=== PATIENT | female | born 1955 | race Caucasian/White ===

== ENCOUNTER 2025-06-14 05:21 | Observation (INO) ==
--- NOTE | 2025-05-26 14:29 | PAT Medication Instructions ---
Medication Instructions Date of Service May 26, 2025 Home Medications amlodipine 5 mg tablet 5 mg PO QAM cranberry extract 200 mg capsule 200 mg PO DAILY duloxetine 60 mg capsule,delayed release (Cymbalta) 60 mg PO QAM hydrochlorothiazide 25 mg tablet 25 mg PO QAM levothyroxine 100 mcg capsule 50 mcg PO UD rosuvastatin 10 mg tablet (Crestor) 10 mg PO HS calcium 600 mg (as carbonate)-vit D3 20 mcg (800 unit) chewable tablet (Caltrate plus D) 1 tab PO BID mecobalamin (vitamin B12) 2,500 mcg chewable tablet 2,500 mcg PO DAILY cholecalciferol (vitamin D3) 125 mcg (5,000 unit) capsule 125 mcg PO DAILY multivitamin (Daily Multi-Vitamin tablet) 1 tab PO DAILY aspirin 81 mg tablet 81 mg PO DAILY Continue as directed levothyroxine 100 mcg capsule 50 mcg PO UD ASK your prescriber and surgeon aspirin 81 mg tablet 81 mg PO DAILY DO NOT take the morning of surgery cranberry extract 200 mg capsule 200 mg PO DAILY hydrochlorothiazide 25 mg tablet 25 mg PO QAM calcium 600 mg (as carbonate)-vit D3 20 mcg (800 unit) chewable tablet (Caltrate plus D) 1 tab PO BID mecobalamin (vitamin B12) 2,500 mcg chewable tablet 2,500 mcg PO DAILY cholecalciferol (vitamin D3) 125 mcg (5,000 unit) capsule 125 mcg PO DAILY multivitamin (Daily Multi-Vitamin tablet) 1 tab PO DAILY Take morning of surgery With a small sip of water, OTHERWISE NOTHING TO EAT OR DRINK AFTER MIDNIGHT: amlodipine 5 mg tablet 5 mg PO QAM duloxetine 60 mg capsule,delayed release (Cymbalta) 60 mg PO QAM Take evening before surgery rosuvastatin 10 mg tablet (Crestor) 10 mg PO HS calcium 600 mg (as carbonate)-vit D3 20 mcg (800 unit) chewable tablet (Caltrate plus D) 1 tab PO BID Other Notes If you have any questions please call us at [phone] or [phone] or [phone] or [phone]
--- NOTE | 2025-06-02 13:55 | Anesthesiology Consultation ---
Date of Service June 02, 2025 Assessment & Plan (1) Encounter for pre-operative examination: - Outpatient joint assessment: Patient is currently scheduled for inpatient pathway. If re-evaluated and patient/surgeon requests outpatient pathway, patient is not ideal for outpatient joint program. Chart Review Chart Review: Acceptable Risk for Surgery and Patient seen in Pre Admission Testing Teaching & Discussion Pre-Anesthesia Teaching/Discussion Notes: Instructed NPO after midnight before surgery, except medications with 15 cc of water. Medication instructions provided according to the PAT guidelines. History Surgery Operation Date: 06/14/25 07:00 Proposed Procedures p Left Total Knee Arthroplasty - Marques Burnett MD Height/Weight Height: 5 ft 1.5 in Weight: 52.8 kg Allergies Allergy/AdvReac Type Severity Reaction Status Date / Time bactrim AdvReac yeast Uncoded 05/25/25 13:34 infection Medications Home Medications Medication Instructions Recorded Confirmed Last Taken amlodipine 5 mg tablet 5 mg PO QAM 07/29/24 05/25/25 Unknown cranberry extract 200 mg capsule 200 mg PO DAILY 07/29/24 05/25/25 Unknown duloxetine 60 mg capsule,delayed 60 mg PO QAM 07/29/24 05/25/25 Unknown release (Cymbalta) hydrochlorothiazide 25 mg tablet 25 mg PO QAM 07/29/24 05/25/25 Unknown levothyroxine 100 mcg capsule 50 mcg PO UD 07/29/24 05/25/25 Unknown rosuvastatin 10 mg tablet (Crestor) 10 mg PO HS 07/29/24 05/25/25 Unknown calcium 600 mg (as carbonate)-vit 1 tab PO BID 11/26/24 05/25/25 Unknown D3 20 mcg (800 unit) chewable tablet (Caltrate plus D) mecobalamin (vitamin B12) 2,500 2,500 mcg PO DAILY 11/26/24 05/25/25 Unknown mcg chewable tablet cholecalciferol (vitamin D3) 125 125 mcg PO DAILY 01/17/25 05/25/25 Unknown mcg (5,000 unit) capsule multivitamin (Daily Multi-Vitamin 1 tab PO DAILY 01/17/25 05/25/25 Unknown tablet) aspirin 81 mg tablet 81 mg PO DAILY 05/25/25 05/25/25 Unknown Past Medical History Medical History (Updated 06/03/25 @ 08:36 by Heather Pink PA-C) Cerebrovascular disease follows with [facility] Chickenpox as a child Degenerative arthritis of knee, bilateral Depression Fibromyalgia LISA (generalized anxiety disorder) GERD (gastroesophageal reflux disease) resolved History of COVID-19 (2020) denies hospitalization-resolved HTN (hypertension) variable Hyperlipidemia Hypothyroidism Mild cognitive disorder Mumps as a child Neoplasm of unspecified behavior of bone, soft tissue, and skin pt unaware/denies Osteoporosis Thoracic and lumbosacral neuritis Patient denies h/o stroke, seizures, heart attack, heart failure, DM, blood clots/DVTs or blood transfusions. Exercise / Class Metabolic Activity II 4-5 Yardwork/Stairs/Walk up hill (denies chest discomfort or shortness of breath with one flight of stairs) Past Family History Family History Father Rheumatoid arthritis Daughter Rheumatoid arthritis Past Surgical History Surgical History Hx of arthroscopic knee surgery right meniscus repair Hx of colonoscopy Past Anesthesia History No Hx of Anesthesia Complications and No Family Hx of Anesthesia Complications History of PONV No Hx of PONV and No Hx of Motion Sickness Social History Smoking Status: Never smoker Do You Dip or Chew Tobacco: No Hx Alcohol Use: Yes (Occasional) Alcohol type: wine alcohol intake frequency: holidays/special occasions only Hx Substance Use: No substance use type: does not use Review of Systems Snoring, denies witnessed apneas. Patient denies chest pain, shortness of breath, dyspnea on exertion, fever, chills, cough, wheezing, or palpitations. Physical Exam Vital Signs Vitals BP 130/78 P 67 TEMP 98.4 SP02 97% on RA RESP 18 Physical Patient resting comfortably in chair in no acute distress, alert and oriented, responding appropriately throughout visit Full cervical extension range of motion without pain TMD 3.5 finger breadths Mallampati Score 2 Dentition: removable bridge, denies chipped or loose teeth, caps/crowns, or implants Lungs: normal respiratory effort. Good air movement, clear throughout to auscultation, no adventitious breath sounds Cardiac: regular rate and rhythm, no murmurs noted Carotid arteries: negative bruit bilat Lab Results Anesthesia Preop Results Results Anesthesia Widget: WBC 4.62 K/ul (4.8-10.8) L 06/02/25 Hgb 13.4 g/dl (12.0-16.0) 06/02/25 Hct 38.8 % (37.0-47.0) 06/02/25 Plt 263 K/uL (130-400) 06/02/25 Na 140 mmol/L (136-145) 06/02/25 K 3.7 mmol/L (3.5-5.1) 06/02/25 Cl 103 mmol/L (98-107) 06/02/25 CO2 31 mmol/L (21-32) 06/02/25 BUN 13 mg/dl (6-23) 06/02/25 Creat 0.63 mg/dl (0.6-1.2) 06/02/25 Glucose Level 94 mg/dl (70-99(Fasting)) 06/02/25 PT 10.7 Seconds (9.0-12.0) 06/02/25 PTT 28 Seconds (21-31) 06/02/25 INR 1.0 (0.9-1.1) 06/02/25 Blood Type O Positive 06/02/25 Antibody Screen NEGATIVE 06/02/25 Testing Electrocardiogram Date: 06/02/25 NSR with sinus arrhythmia, rate 70 bpm Chest X-Ray Date: 06/02/25 No active cardiopulmonary disease. Other Testing Brain MRI 07/06/24 No acute infarct, intracranial hemorrhage, midline shift or mass effect. Chronic microvascular ischemic disease with moderate generalized volume loss.
--- NOTE | 2025-06-06 17:01 | History & Physical Report ---
Date of Service June 06, 2025 Assessment & Plan (1) Degenerative arthritis of knee, bilateral: 70-year-old female with advanced bilateral knee DJD left side more symptomatic than the right. She is failed conservative treatment. She is ready to proceed with left knee replacement. Plan: Organ to take her to the operating room do a left total knee replacement. The risks met this procedure explained. Informed consent was obtained. Will plan using aspirin for DVT prophylaxis. He is taylor plan to stay in the hospital overnight and discharge postoperative day 1. She is planned to be discharged home with some home health and her 's assistance. (2) Fibromyalgia: (3) Mixed hyperlipidemia: (4) Cerebrovascular disease: (5) Osteoporosis: (6) Essential hypertension: (7) Hypothyroidism: (8) Mild recurrent major depression: History of Present Illness Chief Complaint: . Bilateral knee pain discomfort left side greater than the right. Primary Care Provider: Marlys Diego . The patient is a 70-year-old female well-known to me from a previous right knee scope done many years ago. Most recently she has been seeing Darryl for knee injections. Her left knee has been a bit worse than the right she has been through extensive conservative treatment which has become less successful over time. She had gel shots which did not help at all. The steroid shots have become less effective for her. She does have some underlying fibromyalgia. She is ready to proceed with surgery. Allergies Allergy/AdvReac Type Severity Reaction Status Date / Time bactrim AdvReac yeast Uncoded 05/25/25 13:34 infection Home Medications Medication Instructions Recorded Confirmed Type amlodipine 5 mg tablet 5 mg PO QAM 07/29/24 05/25/25 History cranberry extract 200 mg capsule 200 mg PO DAILY 07/29/24 05/25/25 History duloxetine 60 mg capsule,delayed 60 mg PO QAM 07/29/24 05/25/25 History release (Cymbalta) hydrochlorothiazide 25 mg tablet 25 mg PO QAM 07/29/24 05/25/25 History levothyroxine 100 mcg capsule 50 mcg PO UD 07/29/24 05/25/25 History rosuvastatin 10 mg tablet (Crestor) 10 mg PO HS 07/29/24 05/25/25 History calcium 600 mg (as carbonate)-vit 1 tab PO BID 11/26/24 05/25/25 History D3 20 mcg (800 unit) chewable tablet (Caltrate plus D) mecobalamin (vitamin B12) 2,500 2,500 mcg PO DAILY 11/26/24 05/25/25 History mcg chewable tablet cholecalciferol (vitamin D3) 125 125 mcg PO DAILY 01/17/25 05/25/25 History mcg (5,000 unit) capsule multivitamin (Daily Multi-Vitamin 1 tab PO DAILY 01/17/25 05/25/25 History tablet) aspirin 81 mg tablet 81 mg PO DAILY 05/25/25 05/25/25 History Past Med/Surg History Problem List Encounter for pre-operative examination Osteoporosis Cerebrovascular disease Mixed hyperlipidemia Fibromyalgia Essential hypertension Hypothyroidism Mild cognitive disorder Mild recurrent major depression Generalized anxiety disorder GERD (gastroesophageal reflux disease) Vitamin D deficiency Vitamin B deficiency Thoracic and lumbosacral neuritis Degenerative arthritis of knee, bilateral Medical History Depression Hyperlipidemia Thoracic and lumbosacral neuritis HTN (hypertension) variable Degenerative arthritis of knee, bilateral History of COVID-19 (2020) denies hospitalization-resolved Mild cognitive disorder Fibromyalgia Hypothyroidism LISA (generalized anxiety disorder) GERD (gastroesophageal reflux disease) resolved Cerebrovascular disease follows [facility] Osteoporosis Neoplasm of unspecified behavior of bone, soft tissue, and skin pt unaware/denies Mumps as a child Chickenpox as a child Surgical History Hx of arthroscopic knee surgery right meniscus repair Hx of colonoscopy Family History Father Rheumatoid arthritis Daughter Rheumatoid arthritis Social History Smoking Status: Never smoker Second Hand Exposure: No; Do You Dip or Chew Tobacco: No; Hx Alcohol Use: Yes (Occasional) Alcohol type: wine Hx Substance Use: No Preferred Language: Italian Communication Ability: Effective Nibbler Operator Required: No Beliefs That Will Affect Care: None Current Living Situation: Spouse current occupational status: retired 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 Physical Exam . Physical examination is a pleasant healthy-appearing middle-age female. Examination of the knees reveals the patient ambulates independently. She got varus alignment to both knees. Examination left knee reveals a well-healed scars from a previous at least scope. She has got well-healed scabs in the fron t of her fuentes. No signs of infection. She got varus alignment to her knee. Bony hypertrophy medially. She is tender medially. Range of motion is 5-1 20. No instability. No pain with hip motion. Examination of the right knee reveals similar varus alignment there is got bony hypertrophy medially. Mild tenderness. Range of motion 5-1 20. No instability. Constitutional WD/WN, vitals as above Cardiovascular RRR, no murmur, no edema Gastrointestinal (Abdomen) normal bowel sounds, soft, nontender, no hepatosplenomegaly Results & Data Results & Data Laboratory Results . Diagnostic Findings . X-rays of the left knee were reviewed. She has advanced bilateral knee DJD. She has got complete loss of medial joint space in both knees. She got osteophytes medially. The left knee may be slightly worse than the right. PG Care Time/CCT Total # of Minutes Spent Total Time Spent with Patient: Total time spent is greater than 50% in coordination of care (as documented) at patient's floor/unit and/or counseling patient: Coding Level of Care Code None Diagnoses Degenerative arthritis of knee, bilateral M17.0 Fibromyalgia M79.7 Mixed hyperlipidemia E78.2 Cerebrovascular disease I67.9 Age-related osteoporosis without current pathological fracture M81.0 Osteoporosis type: age-related Presence of current pathological fracture: without current pathological fracture Essential hypertension I10 Hypothyroidism E03.9 Mild recurrent major depression F33.0 (5) Osteoporosis Osteoporosis type: age-related Presence of current pathological fracture: without current pathological fracture Qualified Code(s): M81.0 - Age-related osteoporosis without current pathological fracture
[2025-06-14] MEDS: LR 500ML BOLUS, THEN 15ML/HR IV SCH (06:05)
[2025-06-14] MEDS: LR 60ML/HR IV SCH (06:08)
[2025-06-14] MEDS: dexAMETHasone**PF** 10 MG/ML VIAL IV SCH (06:08)
[2025-06-14] MEDS: ACETAMINOPHEN 500 MG TAB PO SCH ×2 (06:08→11:03)
[2025-06-14] MEDS: FAMOTIDINE 20 MG TAB PO SCH (06:08)
[2025-06-14] MEDS: METOCLOPRAMIDE HCL 10 MG TABLET PO SCH (06:08)
[2025-06-14] MEDS: CeleBREX 200 MG CAP PO SCH (06:08)
[2025-06-14] MEDS ORDERED: BUPIVACAINE 0.5 % 5 MG/1 ML PF 10ML VIAL ONE (06:23)
[2025-06-14] MEDS ORDERED: BUPIVACAINE 0.25% PF 30 ML VIAL ONE (06:23)
[2025-06-14] MEDS ORDERED: ONDANSETRON INJ 2 MG/ML 2 ML VIAL IV PRN ×2 (06:24→10:13)
[2025-06-14] MEDS ORDERED: ATROPINE SULFATE 0.1 MG/ML 10ML SYR IV PRN (06:24)
[2025-06-14] MEDS ORDERED: PROPOFOL IV EMULSION 10 MG/ML 100 ML VIAL IV ONE (06:38)
[2025-06-14] MEDS ORDERED: MIDAZOLAM HCL 1 MG/ML 2ML VIAL ONE (06:38)
--- NOTE | 2025-06-14 06:52 | History & Physical Bridge Note ---
Date of Service June 14, 2025 History & Physical Bridge Note I have examined the patient, reviewed the History & Physical and in the interval since the performance of the History & Physical I have noted the following changes of clinical significance: no changes noted
[2025-06-14] MEDS: ORTHO JOINT ANESTHETIC ONE (07:59)
[2025-06-14] MEDS: ROPIV 0.5% 246mg, Ketorolac 30mg, EPINEPHrine 0.5mg in NSS INFIL SCH (07:59)
--- NOTE | 2025-06-14 09:11 | Operative Report ---
PG Post Operative Report Pre & Post Diagnosis Operation Date: 06/14/25 07:00 Pre-Op Diagnosis: Left Knee Osteoarthritis Post-Op Diagnosis: Left Knee Osteoarthritis I identified the patient and participated in the time-out.: Yes Procedure Operation Date: 06/14/25 07:00 Actual Procedures p Left Total Knee Arthroplasty, Cemented(Left) - Marques Burnett MD Surgeon Marques Burnett MD Wet End Tester Elías Berman PA-C Estimated Blood Loss 50 Findings Consistent with Post-Op Diagnosis Operative findings were advanced left knee DJD. She had extensive grade 4 [id number] disease of the entire medial compartment with eburnation of the bone and significant osteophytes. She had a fixed varus deformity to her knee. Moderate knee effusion. Specimens Left knee sent for pathology. Anesthesia Type Spinal MAC Complications none Disposition Accompanied Patient To Recovery: No Indications Patient is a 70-year-old female has had a several year history of increasing bilateral knee pain discomfort left side bit worse than the right. She failed conservative measures. X-rays show advanced medial arthritis in both knees. She elected proceed with left total knee arthroplasty. Description of Procedure Operative implants consist of: 1. Vanguard/62.5 left posterior stabilized femoral component. 2. Biomet size 67 tibial tray. 3. 10 mm posterior stabilized polyethylene insert. 4. 31 x 8 all poly patella. The patient was taken to the op room, identified, placed on the operating table in the supine position. All contact areas were appropriately padded. IV antibi otics fibra anesthesia team. A spinal anesthetic and adductor canal block had been provided in the holding area. A Kessler catheter was placed in sterile fashion. A left phytate was then placed in the left lower extremity was then prepped and draped in usual sterile fashion. The left leg was elevated and exsanguinated with use of an Esmarch and a turn was placed at 300 mmHg. An anterior approach to the left knee was then performed through a longitudinal incision centered over the patella. Sharp dissection was Through subcutaneous tissue down to the extensor mechanism. A medial parapatellar arthrotomy incision was made. Some subperiosteal dissection was carried out medially. The fat pad was resected from the patella tendon. Lateral patellofemoral ligament was released. Patella subluxated laterally and the knee was flexed. The osteophytes taken off distal femur. The ACL and PCL were then released from distal femur and the tibia subluxated anteriorly. The external tibial LYMErix then placed on the anterior face of the tibia and adjusted 14 mm medially. The proximal tibial cut was made to remove about a millimeter bone from the most deficient aspect medial tibial plateau. Some osteophytes taken off medially and posterior medially. The tibia sized to a size 67. Attention drawn to the femur. The distal femur was then with a sharp drill. Intramedullary canal was suction. A left 5 degree valgus cutting guide was placed. The distal femoral cutting block was pinned in place. This femoral cut was made take an additional 3 mm of bone off distal femur. The femur was then sized to a size 62.5. The AP cutting block was pinned parallel to the epicondylar axis which was 5 degrees of external rotation. The anterior cut, anterior chamfer, posterior cut, posterior chamfer cuts were made. The box cutting guide was placed in the just slight lateral and the box cut was made. The knee was flexed. The remnants of the medial and lateral menisci were excised. The osteophytes taken off the posterior aspect of femur. A trial femoral component was placed. The tibial tray was pinned in Dayanna external rotation and the drill and stem punch were used to create defect in the proximal tibia for the tibial tray. Knee was then trialed and the a 10 mm insert fit most appropriately. Attention drawn the patella. The patella was cleaned of all soft tissue. Patella thickness measured about 19 mm in thickness was cut down to 13. Was sized to a size 31 patella. The lug holes were drilled for a 31 patella. The lateral osteophytes removed. Patella button was placed. Knee was taken through range of motion and the patella tracked nicely with no thumbs test. Attention drawn to placement permanent components. All trial components were removed. A bone plug was placed into the distal femur limit blood loss. Double batch Palacos G cement was mixed. Biomet Vanguard size 62.5 left posterior stabilized femoral component, a size 67 tibial tray, 10 mm posterior stabilized polyethylene insert, and a 31 x 8 all poly patella then cemented in place. Knee was brought out into full extension till cement hardened. Final cement check was then performed. Pericapsular tissues were injected with a total of 100 cc of Ortho mix. Patient did receive 1 g tranexamic acid. The tourniquet was then let down for final tourniquet time of 61 minutes. Hemostasis assured with electrocautery. Extensor Meclomen was then closed combination of #1 PDS suture and #1 Vicryl suture in a [id number] fashion. Extensor Meclomen checked found to be intact through subcutaneous tissue then closed with 2 Dexon suture in a buried interrupted fashion skin was closed skin matthias. Leg was then cleaned and dried and a sterile dressing with Xeroform, 4 fours, sterile cast padding, Isac bandage were applied. The patient then transferred to the recovery room in stable condition. The patient tolerated the procedure well and there were no complications. Elías Berman, my physician cafeteria assistant, was present for the entire procedure. His assistance was required for proper patient positioning, prepping and draping, surgical exposure, retraction, perform the technical details of the operation, placement of the implants, closure of the incision site, and placement of the postoperative sterile bandage. I attest to the content of the Intraoperative Record and any orders documented therein. Any exceptions are noted below.
--- NOTE | 2025-06-14 09:35 | XRay Report ---
XR knee LT 1 or 2V routine CLINICAL HISTORY: Postoperative evaluation. COMPARISON: Left knee radiographs May 12, 2025. FINDINGS: Alignment of the total left knee arthroplasty is anatomic. There is no periprosthetic frac ture or unexpected radiopaque foreign body. There are skin matthias. IMPRESSION: Expected findings following total left knee arthroplasty. ACT 112: Negative or not required by law. Electronically signed by: Alberto Cohen M.D. 06/14/2025 9:34 AM
[2025-06-14] MEDS ORDERED: METOCLOPRAMIDE HCL INJ 5 MG/ML 2 ML VIAL IV PRN (10:13)
[2025-06-14] MEDS ORDERED: MAGNESIUM HYDROXIDE SUSP 30 ML UDC PO PRN (10:13)
[2025-06-14] MEDS ORDERED: ALUMINUM/MAGNESIUM SUSP 30 ML UDC PO PRN (10:13)
[2025-06-14] MEDS ORDERED: NALOXONE HCL 0.4 MG/1 ML VIAL/CARP IV PRN (10:13)
[2025-06-14] MEDS ORDERED: HYDROmorphone INJ 0.5 MG/0.5 ML SYR IV PRN (10:13)
[2025-06-14] MEDS: SODIUM CHLORIDE 0.9% 1,000 ML IV SCH (11:02)
[2025-06-14] MEDS: KETOROLAC TROMETHAMINE 15 MG/ML VIAL IV SCH (11:03)
[2025-06-14] MEDS: hydroCHLOROthiazide 25 MG TAB PO SCH (11:03)
[2025-06-14] MEDS: LEVOTHYROXINE SODIUM 50 MCG TABLET PO SCH (11:04)
[2025-06-14] MEDS: CALCIUM 600MG + VIT D 400 IU TAB PO SCH (11:09)
[2025-06-14] MEDS: CYANOCOBALAMIN (B-12) 2,500 MCG TABLET PO SCH (11:09)
[2025-06-14] MEDS: CHOLECALCIFEROL 125 MCG (5,000 UNITS) TAB PO SCH (11:09)
[2025-06-14] MEDS: ASPIRIN 81 MG ECTAB PO SCH (11:09)
[2025-06-14] MEDS: SENNA 8.6 MG TAB PO SCH (11:11)
[2025-06-14] MEDS: SENNA 8.6 MG TAB PO ONE (11:16)
--- NOTE | 2025-06-14 14:00 | Anesthesiology Progress Note ---
Date of Service June 14, 2025 Anesthesia Post Procedure Vital Signs Vital Signs: Temp Pulse Pulse Resp BP Pulse Ox O2 Del Method 06/14/25 13:06 36.7 C 82 18 114/68 98 Room Air 06/14/25 12:11 36.9 C 88 16 114/64 98 Room Air 06/14/25 11:07 36.5 C 81 18 117/64 100 Room Air 06/14/25 10:43 36.7 C 84 16 118/74 97 Room Air 06/14/25 10:10 36.5 C 76 18 126/69 97 Room Air 06/14/25 09:50 79 20 117/59 L 99 Room Air 06/14/25 09:40 36.4 C L 77 20 120/82 98 Room Air 06/14/25 09:30 74 13 120/62 98 Room Air 06/14/25 09:20 74 16 112/60 98 Room Air 06/14/25 09:10 76 13 115/58 L 99 Oxymask 06/14/25 09:00 36.1 C L 77 14 108/56 L 100 Oxymask 06/14/25 05:35 36.7 C 76 18 177/90 H 96 Room Air O2 Flow Rate 06/14/25 13:06 06/14/25 12:11 06/14/25 11:07 06/14/25 10:43 06/14/25 10:10 06/14/25 09:50 06/14/25 09:40 06/14/25 09:30 06/14/25 09:20 06/14/25 09:10 10 06/14/25 09:00 10 06/14/25 05:35 Transfer of Care Handoff Completed per policy Notes Mental Status: alert / awake / arousable and participated in evaluation Patient Amnestic to Procedure: Yes Nausea / Vomiting: adequately controlled Pain: adequately controlled Airway Patency, RR, SpO2: stable & adequate BP & HR: stable & adequate Hydration State: stable & adequate Neuraxial Anesthesia: was administered and sensory block is resolving Anesthetic Complications: no major complications apparent and Pt Satisfied with anesthetic care
[2025-06-14] MEDS: TRANEXAMIC ACID / 0.7% NACL 1,000 MG/100 ML BAG IV SCH (16:05)
[2025-06-14] MEDS: ASCORBIC ACID 500 MG TAB PO SCH (17:11)
[2025-06-14] MEDS ORDERED: SENNA 8.6 MG TAB PO SCH (21:00)
[2025-06-14] MEDS: DOCUSATE SODIUM 100 MG CAP PO SCH (22:36)
[2025-06-14] MEDS: ROSUVASTATIN CALCIUM 10 MG TAB PO SCH (22:37)
[2025-06-15 06:27] LABS: Hematocrit (blood only) 32.8 % (37.0-47.0); Hemoglobin 10.8 g/dl (12.0-16.0); Mean Corpuscular Hemoglobin 30.6 pg (25.0-34.0); Mean Corpuscular Volume 92.9 fL (80.0-100.0); Platelet Count 243 K/uL (130-400); RDW Standard Deviation 42.2 fL (36.4-46.3); Red Blood Count 3.53 M/uL (4.20-5.40); White Blood Count 14.95 K/ul (4.8-10.8)
[2025-06-15 06:55] LABS: Anion Gap 7.0 (3-11); Blood Urea Nitrogen 13.0 mg/dl (6-23); Calcium 8.7 mg/dl (8.6-10.3); Carbon Dioxide 27.0 mmol/L (21-32); Chloride 108.0 mmol/L (98-107); Creatinine Clr Calc Pharmacy 64.4 ml/min; Glucose 119.0 mg/dl (70-99(Fasting)); Potassium 3.6 mmol/L (3.5-5.1); Sodium 142.0 mmol/L (136-145)
--- NOTE | 2025-06-15 09:36 | Orthopedic Progress Note ---
Date of Service June 15, 2025 Assessment & Plan (1) History of total left knee replacement: * Continue Current Treatment * Disposition: Home with services * Daily treatment: Physical Therapy/ Occupational Therapy per protocol * Weight bearing status: as tolerated * Continue to monitor for ABLA * Pain control * DVT prophylaxis, ASA * Office/hospital f/u 2 weeks for progress check and staple/suture removal * Plan for discharge today pending PT/OT clearance Subjective .Active Problems: S/p left TKA POD 1 70 y/o female s/p left total knee arthroplasty with Dr. Burnett on 06/14/25. Doing well overall, pain managed and improved function. Denies fever/chills, chest pain/SOB, nausea/vomiting. Otherwise no complaints. Review of Systems All systems reviewed & are unremarkable except as noted in HPI & below. Physical Exam * General: Alert and oriented, no acute distress * Constitutional: well-developed, well-nourished. * Respiratory: Normal respiratory effort, no distress * Gastrointestinal: No tenderness to palpation, no rigidity or guarding. * Skin: No rash or lesion. * Neurologic: Grossly normal * Musculoskeletal: Left knee surgical dressing clean, dry and in place, not removed for exam. Otherwise no obvious deformity or overlying skin changes RLE. Diffuse TTP distal thigh and knee region. Otherwise no specific t enderness of proximal thigh, lower leg, foot/ankle. AROM knee flexion 90 degrees and fully extension. AROM foot/ankle intact. Sensation intact plantar/dorsal foot. Brisk capillary refill. . Results & Data Results & Data Laboratory Results . Laboratory Results - last 24 hr 06/15/25 05:53 WBC 14.95 H RBC 3.53 L Hgb 10.8 L Hct 32.8 L MCV 92.9 MCH 30.6 MCHC 32.9 RDW Std Deviation 42.2 RDW Coeff of Sarah 12.4 Plt Count 243 MPV 10.0 Sodium 142 Potassium 3.6 Chloride 108 H Carbon Dioxide 27 Anion Gap 7 BUN 13 Creatinine 0.61 Est Cr Clr Drug Dosing 64.4 eGFR 94.93 BUN/Creatinine Ratio 21.3 H Glucose 119 H Calcium 8.7 Diagnostic Findings Knee X-Ray 06/14/25 09:04 XR knee LT 1 or 2V routine CLINICAL HISTORY: Postoperative evaluation. COMPARISON: Left knee radiographs May 12, 2025. FINDINGS: Alignment of the total left knee arthroplasty is anatomic. There is no periprosthetic fracture or unexpected radiopaque foreign body. There are skin matthias. IMPRESSION: Expected findings following total left knee arthroplasty. ACT 112: Negative or not required by law. Electronically signed by: Alberto Cohen M.D. 06/14/2025 9:34 AM . PG Care Time/CCT Total # of Minutes Spent Total Time Spent with Patient: Total time spent is greater than 50% in coordination of care (as documented) at patient's floor/unit and/or counseling patient: Coding Level of Care Code 66008 Post Operative Follow-Up Diagnoses History of total left knee replacement Z96.652
[2025-06-15] MEDS: MULTIVITAMIN TAB PO SCH (09:42)
[2025-06-15] MEDS: dexAMETHasone 10 MG in SYRINGE 0 ML IV SCH (09:49)
== END 2025-06-15 13:24 | disposition home health service (06) ==
LOC: 3E 05:21 → ASU 05:21